=== PATIENT | female | born 1970 | race Caucasian/White ===

== ENCOUNTER → 2025-02-21 09:47 | Outpatient (BNVA) | payer MEDICARE, SELFPAY | PROVIDERS: Visit Provider Surgery | DX: K44.9 Diaphragmatic hernia without obstruction or gangrene (principal); K21.9 Gastro-esophageal reflux disease without esophagitis; R10.13 Epigastric pain; R10.12 Left upper quadrant pain | CPT/HCPCS: 99204 ==

== ENCOUNTER 2025-03-12 07:42 | Outpatient (CLI) | payer MEDICARE, SELFPAY ==
--- NOTE | 2025-03-12 11:15 | DI.RAD_ITS ---
Exam(s) RF BARIUM SWALLOW UGI EXAM: RF BARIUM SWALLOW UGI CLINICAL HISTORY: severe refractory gerd, hiatal hernia with gerd,k21.9,k44.9 TECHNIQUE: 2D and real-time digital imaging was performed. Study was performed with both single and air contrast technique Performed both upright and recumbent CONTRAST MATERIAL: Oral barium Oral water soluble contrast was administered. COMPARISON: No exams were available for comparison FINDINGS: ESOPHAGUS: Swallowing mechanism appears intact. No aspiration evident. There does appear to be a slightly hyperintense upper esophageal sphincter evident. No evidence of Zenker's diverticulum. No evidence of hiatal hernia nor reflux demonstrated during this examination. No evidence of achalasia. No tertiary waves also no evidence of Schatzki ring nor fixed lesions in the lower esophagus/GE junction region. Esophagus exhibits normal diameter. No fixed lesions in the esophagus. STOMACH: Normal size. No lesions nor ulcer craters. DUODENUM: Normal diameter. No ulcer craters. No diverticuli. No obvious mild rotation. Surgical clips in the right upper quadrant from prior cholecystectomy are noted. IMPRESSION: Mildly hypertense upper esophageal sphincter. No other findings in the esophagus. No significant findings in the stomach and duodenum. RADIATION DOSE DELIVERED: mary Campos= 55.8 mGy
[2025-03-12] MEDS: Barium Sulfate 60% W/V 355 ML BTL PO (11:18)
[2025-03-12] MEDS: Barium Sulfate 98% W/W 140 ML BTL PO (11:19)
[2025-03-12] MEDS: Simethicone/Sod Bicarb/Cit Ac, 4 gram PACKET 1 PACKET PO (11:20)
== END 2025-03-12 08:02 ==
PROVIDERS: Visit Provider Surgery
DX: K44.9 Diaphragmatic hernia without obstruction or gangrene (principal); K21.9 Gastro-esophageal reflux disease without esophagitis
CPT/HCPCS: 74221; 74246; J3490

== ENCOUNTER 2025-03-29 12:57 | Day surgery (SDC) | payer OTHER, SELFPAY ==
[2025-03-29 13:06] VITALS: BP 129/90; PULSE 80; RESP 16; TEMP 36; O2SAT 96
[2025-03-29] MEDS: Lactated Ringers 1,000 ML 80 ML IV (13:28)
--- NOTE | 2025-03-29 13:39 | W.ANESPRE ---
General Info Date of Service Date Performed: 03/29/25 Height: 5 ft 4 in Weight: 94.7 kg Body Mass Index (BMI): 35.8 Surgical Procedure: Operation Date: 03/29/25 15:20 Proposed Procedure Side Surgeon p Gastroscopy Genny Tafoya MD Meds Allergies and Home Medications Allergies Allergy/AdvReac Type Severity Reaction Status Date / Time bupropion (From Wellbutrin) Allergy Intermediate Hives Verified 03/29/25 13:16 venlafaxine (From Effexor) AdvReac Severe Headache Verified 03/29/25 13:16 Home Medication ?Medication ?Instructions ?Recorded atogepant 10 mg tablet (Qulipta) 10 mg PO DAILY 01/15/25 calcium carbonate 500 mg PO DAILY 01/15/25 ezetimibe 10 mg tablet 10 mg PO DAILY 01/15/25 fluoxetine 20 mg capsule 20 mg PO DAILY 01/15/25 magnesium 250 mg tablet 500 mg PO DAILY 01/15/25 rimegepant 75 mg disintegrating 75 mg PO ONCE PRN 01/15/25 tablet (Nurtec ODT) dexlansoprazole 60 mg 60 mg PO DAILY 30 days #30 caps 02/21/25 capsule,biphase delayed release (Dexilant) Current Visit Medications: Current Medications Generic Name Dose Route Start Last Admin Trade Name Freq PRN Reason Stop Dose Admin Ringer's Solution 1,000 mls @ 80 mls/hr 03/29/25 06:00 03/29/25 13:28 IV 03/29/25 23:59 80 mls/hr INFUSION BEAU Administration IV Miscellaneous Supplies 1 each 03/29/25 06:00 Iv Access IV 03/29/25 23:59 DIRECTED BEAU Sodium Biphosphate/Sodium Phosphate 133 - 266 ml 03/29/25 06:00 Na Phosphate Enema-Adult 133 Ml Btl DC 03/29/25 23:59 PRN PRN Sodium Chloride 0 ml 03/29/25 06:00 Normal Saline Flush 10 Ml Syr IV 03/29/25 23:59 PRN PRN Sodium Chloride 0 ml 03/29/25 06:00 Normal Saline 10 Ml Vial IJ 03/29/25 23:59 DIRECTED PRN Sterile Water 0 ml 03/29/25 06:00 Water,Injection,Sterile 10 Ml Vial IJ 03/29/25 23:59 DIRECTED PRN PFSH Active Problems Active Problems: Problem Status Onset Code Hiatal hernia with GERD Acute K44.9, K21.9 Hiatal hernia with gastroesophageal reflux disease without esophagitis Acute K44.9, K21.9 Medical History Medical History Iron deficiency Hyperlipidemia Fatigue Hot flashes Abnormal weight gain Obesity Carpal tunnel syndrome Sleep apnea Insomnia Surgical History Surgical History History of esophagogastroduodenoscopy (EGD) (~03/2022) History of colonoscopy (~2021) Cottage History of hysterectomy Tobacco Smoking/Tobacco Use Status: Former Tobacco Use Alcohol Alcohol Intake: former Substance Use Substance use: Never Substance use type: does not use Vital Signs and Lab Results Vital Signs Most Recent Vital Signs in EMR: Most Recent Vital Signs Temp Pulse Resp BP Pulse Ox 36 C L 80 16 129/90 96 03/29/25 13:06 03/29/25 13:06 03/29/25 13:06 03/29/25 13:06 03/29/25 13:06 Anesthesia Assessment and Plan Anesthesia History Personal History: No History of Anesthesia Complications Family History: No Family History of Anesthesia Complications Exercise Tolerance Exercise Tolerance: Metabolic Equivalents>4 Pertinent Negatives Pertinent Negatives: No Symptoms of GERD Cardiac & Pulmonary Exam Cardiac Exam: Normal S1/S2 Heart Sounds Pulmonary Exam: Clear Bilateral Breath Sounds Implantable Cardiac Device Does patient have a Pacemaker or an ICD?: No Airway Exam Known Difficult Airway: No Mallampati Class: 2 Mouth Opening: Normal (> 3cm) Thyromental Distance: Greater than 3 cm Neck Range of Motion: Full ROM Neck Circumference: Normal Teeth Condition: Normal Dentition ASA Classification ASA Score: ASA 2 Emergency Case?: No NPO Status NPO Status: NPO Clears >2 hours, Solids >8 hours Anesthesia Plan Resuscitation Status: Full Code Anesthesia Technique: General Anesthesia Airway Planned: Natural Airway Monitors Used: Standard Monitors
[2025-03-29 13:46] VITALS: BMI 35.8
--- NOTE | 2025-03-29 14:14 | W.PM.HP.N ---
Date of service: 03/29/25 Time of Service: 14:14 Assessment and Plan Assessment and plan (1) Epigastric pain: Status: Acute Assessment and plan: proceed with egd. Consent signed. office follow up in 2 weeks. History of Present Illness Narrative: 54yo F here for egd for epigastric pain. She has had improvement in heartburn and reflux since we switched her to desilant. UGI did not show hiatal hernia, only slight HTN of UES. Here today for mucosal exam. No change in health from prior visit. PFSH All Active Problems (Updated 03/29/25 @ 14:16 by Genny Tafoya MD) Epigastric pain (Acute) Hiatal hernia with GERD (Acute) Hiatal hernia with gastroesophageal reflux disease without esophagitis (Acute) Medical History Iron deficiency Hyperlipidemia Fatigue Hot flashes Abnormal weight gain Obesity Carpal tunnel syndrome Sleep apnea Insomnia Surgical History History of esophagogastroduodenoscopy (EGD) (~03/2022) History of colonoscopy (~2021) Cottage History of hysterectomy Social History Smoking/Tobacco Use Status: Former Tobacco Use Quit Date: 07/05/08 Smoking risk assessment performed?: Yes Alcohol Intake: former Drug use: Never Substance use type: does not use Housing: apartment Do you feel safe at home: Yes Do you feel safe in your relationship?: Yes Meds Allergies and Home Medications Allergies Allergy/AdvReac Type Severity Reaction Status Date / Time bupropion (From Wellbutrin) Allergy Intermediate Hives Verified 03/29/25 13:16 venlafaxine (From Effexor) AdvReac Severe Headache Verified 03/29/25 13:16 Home Medications ?Medication ?Instructions ?Recorded ?Confirmed ?Type atogepant 10 mg tablet (Qulipta) 10 mg PO DAILY 01/15/25 03/29/25 History calcium carbonate 500 mg PO DAILY 01/15/25 03/29/25 History ezetimibe 10 mg tablet 10 mg PO DAILY 01/15/25 03/29/25 History fluoxetine 20 mg capsule 20 mg PO DAILY 01/15/25 03/29/25 History magnesium 250 mg tablet 500 mg PO DAILY 01/15/25 03/29/25 History rimegepant 75 mg disintegrating 75 mg PO ONCE PRN 01/15/25 03/29/25 History tablet (Nurtec ODT) dexlansoprazole 60 mg 60 mg PO DAILY 30 days #30 caps 02/21/25 03/29/25 Rx capsule,biphase delayed release (Dexilant) Exam Narrative Exam Narrative: awake, NAD eomi, MMM midline trachea, neck is symmetric PULM: normal resp effort, equal chest rise with respiration, no wheezing audible CARDIAC: normal PMI, no jvd, regular rate, normal perfusion abdomen is nondistended. extremities are without deformity, normal movement of all four extremities speech is clear and coherent mood and affect are congruent, no focal neurological deficits skin without rash Results Last Vital Signs Temp 96.8 F L 03/29/25 13:06 Pulse 80 03/29/25 13:06 Resp 16 03/29/25 13:06 BP 129/90 03/29/25 13:06 Pulse Ox 96 03/29/25 13:06 Time Spent Time spent with Patient: <40 minutes Time was spent: preparing to see the patient(eg.review tests), referring, communicating with other health rn transitional care and counseling the patient
--- NOTE | 2025-03-29 14:26 | STOM_PTH ---
PATIENT: Shantelle Black LOC: [facility] U#:[id number] AGE/SX: 54/F ROOM: RE03/29/[address]: Genny Tafoya MD : [id number] BED: DIS: 03/29/2025 SPEC #: [id number] RECD: 03/29/25 17:02 STATUS: RAN LINK #: [id number] RAAD: 03/29/25 14:[address]: Genny Tafoya DEPT: Surgical Specimen RECD BY: Sharon Baron ENTERED: 03/29/25 17:02 SP TYPE: STOMACH OTHR DR: Aki Lim MD Tissues: 1 - STOMACH BIOPSY 2 - STOMACH BIOPSY 3 - ESOPHAGUS BIOPSY Procedures: GROSS AND MICRO LEVEL 4 Comments: [id number]
--- NOTE | 2025-03-29 14:29 | W.PM.DSUDISC ---
Date of service: 03/29/25 Discharge Plan Disposition Patient Disposition: Home Condition: Stable Discharge Details Attending Provider: Genny Tafoya Primary Care Provider: Aki Lim Home Meds and New Rx's Prescriptions: Continued dexlansoprazole [Dexilant] 60 mg capsule,biphase delayed releas 60 mg PO DAILY 30 Days Qty: 30 11RF calcium carbonate 500 mg calcium (1,250 mg) tablet 500 mg PO DAILY magnesium 250 mg tablet 500 mg PO DAILY fluoxetine 20 mg capsule 20 mg PO DAILY ezetimibe 10 mg tablet 10 mg PO DAILY Nurtec ODT 75 mg tablet,disintegrating 75 mg PO ONCE PRN Rx Instructions: as a single dose Qulipta 10 mg tablet 10 mg PO DAILY Discharge Instructions Additional Instructions: EGD today showed some stomach irritation and a stomach full of old partially digested food. The old food in the stomach is a major clue about your symptoms. I have ordered a Gastric Emptying Study which is a special kind of imaging test to determine if you have gastroparesis - a problem of stomach emptying. If you dont have that test done before follow up appointment, please push your follow up appointment out as needed to make sure its done before you see me back. Its a very important test for us to know where to go next. I did not see hiatal hernia. I cannot say with certainty that you dont have ulcer, because the stomach was full and the food blocked me from being able to see the stomach lining. Once we figure out how to help your symptoms and help empty your stomach better we can take another trip down with the scope to see if you have ulcers if you are still experiencing pain. I would like you to continue the dexilant that we started. I would like you to get a papaya extract or papaya supplement. It helps to empty the stomach more naturally than prescription medications. I will hold off on prescribing meds for stomach emptying until I have confirmed that your stomach empties slow (with the gastric emptying test). See me back after your gastric emptying study. I have placed the order for it, the imaging department will call you to schedule. Stand Alone Forms: Anesthesia Discharge Inst., DSU Post EGD Instructions, Francisco Jarvis (DSU) Activity:: Activity as Tolerated Diet:: As Tolerated Discharge Orders Other Ambulatory Orders: NM gastric emptying (Routine) Timeframe: 10 Day Facility: [facility] - Location: DIAGNOSTIC IMAGING Ordered By: Genny Tafoya DS: Diagnosis Discharge Diagnosis (1) Epigastric pain: Status: Acute
--- NOTE | 2025-03-29 14:36 | W.PM.ENDDOP ---
Date of service: 03/29/25 Time of Service: 14:36 Endoscopy Report DATE OF PROCEDURE: 03/29/25 PRE-OP DIAGNOSIS: Epigastric pain POST-OP DIAGNOSIS: same PROCEDURE: EGD with biopsy SURGEON: Genny Tafoya ANESTHESIA TYPE: General:No Airway ESTIMATED BLOOD LOSS: 2 PATHOLOGY: other (1. antrum biopsy. 2. fundus polyp. 3. distal esophagus biopsy) COMPLICATIONS: None DISPOSITION: same day INDICATIONS: Evaluation of upper digestive system for epigastric and LUQ pain source/cause PROCEDURE DESCRIPTION: Lubricated endoscope was passed through a bite block into the second portion of the duodenum. The endoscope was withdrawn and the duodenum stomach and esophageal mucosa examined. The duodenum appeared normal. There is no inflammation or ulceration or erosion. The antrum appears normal. The fundus appears normal. The cardia appears normal. The endoscope was retroflexed and there is no evidence of hiatal hernia. GE junction is at 37cm from the incisors. The distal esophagus is normal without ulceration, varices or candidiasis. The Z-line is regular and there is no evidence of Bates's esophagus. Remainder of the esophagus appears normal Cold forceps biopsies obtained from the duodenum the antrum for microscopic evaluation for celiac sprue and H. pylori. The upper digestive system was desufflated and the endoscope withdrawn. No complications. Assessment and plan: Full stomach/retained food contents of stomach gastritis esophagitis fundus polyp Abnormal retention of food in stomach. Send patient for gastric emptying study. Try papaya extract while diagnostic evaluation for gastroparesis is underway. No clear cause in medical history or med list for this. Continue dexilant. No hiatal hernia on exam today or on UGI study. She has GERD without hiatal hernia, and the reflux is better controlled on dexilant. Office follow up after GES to review symptoms and consider pharmacotherapy if gastroparesis is present.
[2025-03-29 14:39] VITALS: BP 118/69; PULSE 105; RESP 16; TEMP 36.2; O2SAT 96
--- NOTE | 2025-03-29 14:41 | W.ANESPOSTOP ---
Postoperative Evaluation Date, Time and Location Date Performed: 03/29/25 Time Performed: 14:41 Patient Location: Day Surgery Unit Vital Signs Most Recent Imported Vital Signs: Most Recent Vital Signs Temp Pulse Resp BP Pulse Ox 36.2 C L 105 H 16 118/69 96 03/29/25 14:39 03/29/25 14:39 03/29/25 14:39 03/29/25 14:39 03/29/25 14:39 Pain Score Most Recent Pain Score: Most Recent Pain Score Pain Level 0 03/29/25 14:39 Assessment Mental Status: Awake (Alert & Oriented to Patient Baseline) Airway and Respiratory Function: Patent airway with normal (patient baseline) respiratory exam Cardiovascular Function: Hemodynamically Stable Hydration Status: Adequately Hydrated Nausea & Vomiting: No Nausea or Vomiting Pain: Pt. Denies Any Pain Peripheral Nerve Block: Patient did not receive a nerve block
[2025-03-29 15:00] VITALS: BP 123/75; PULSE 88; RESP 16; TEMP 36.5; O2SAT 97
== END 2025-03-29 15:09 | disposition home or self-care (01) ==
PROVIDERS: PCP Family Medicine; Visit Provider Surgery
PROC: 0DJ68ZZ Inspection of Stomach, Via Natural or Artificial Opening Endoscopic (ICD-10-PCS; CPT 43235; principal; 2025-03-29 15:15)
DX: R10.13 Epigastric pain (principal); R10.12 Left upper quadrant pain; K31.89 Other diseases of stomach and duodenum; K22.89 Other specified disease of esophagus; K31.7 Polyp of stomach and duodenum
CPT/HCPCS: 43239; 88305; J2003; J2704